=== PATIENT | female | born 1980 | race Hispanic/Latino ===

== ENCOUNTER 2019-01-05 17:08 | Emergency (ER) | payer OTHER ==
[2019-01-05] MEDS ORDERED: ONDANSETRON HCL 4 MG/2 ML VIAL ONE (17:25)
[2019-01-05 17:36] LABS: BASOPHILS % (AUTO) 0.3 % (0.0-5.0); EOSINOPHILS % (AUTO) 0.4 % (0.0-8.0); HEMATOCRIT 40.3 % (36-48); LYMPHOCYTES % (AUTO) 10.1 % (21.0-51.0); MEAN CORPUSCULAR HEMOGLOBIN 28.7 pg (27.0-33.0); MEAN CORPUSCULAR HGB CONC 32.2 g/dL (32.0-36.0); MEAN CORPUSCULAR VOLUME 89.2 fL (79-99); MONOCYTES % (AUTO) 3.7 % (3.0-13.0); NEUTROPHILS % (AUTO) 85.5 % (40.0-77.0); PLATELET COUNT (AUTO) 364 K/uL (130-400); RED BLOOD CELL COUNT(AUTO) 4.52 MIL/uL (4.00-5.50); RED CELL DISTRIBUTION WIDTH 15.2 % (11.0-15.5); WHITE BLOOD COUNT (AUTO) 10.7 K/uL (4.8-10.8)
[2019-01-05 17:45] LABS: CREATININE 0.9 mg/dL (0.5-1.5); POTASSIUM 3.6 mmol/L (3.5-5.1)
[2019-01-05 17:49] LABS: BILIRUBIN,TOTAL 0.4 mg/dL (0.2-1.0); TOTAL PROTEIN, SERUM 8.5 g/dL (6.0-8.3)
[2019-01-05] MEDS ORDERED: HYOSCYAMINE SULFATE 0.125 MG TAB.SUBL SL ONE (18:09)
[2019-01-05] MEDS ORDERED: KETOROLAC TROMETHAMINE 30MG/ML ONE (18:09)
== END 2019-01-05 20:01 | disposition home or self-care (01) ==
LOC: EDH 17:08
DX: A08.4 Viral intestinal infection, unspecified (principal); I10 Essential (primary) hypertension; Z90.49 Acquired absence of other specified parts of digestive tract
CPT/HCPCS: 36415; 80053; 82150; 83690; 85025; 87804 ×2; 96374; 96375; 99283; J1885; J2405

== ENCOUNTER 2019-09-05 16:14 | Emergency (ER) | payer MEDICAID, OTHER ==
[2019-09-05] MEDS ORDERED: ACETAMINOPHEN EXTRA STRENGTH 500 MG TABLET ONE (16:40)
[2019-09-05 18:35] LABS: APPEARANCE,URINE Cloudy (CLEAR); BILIRUBIN,URINE Negative (NEGATIVE); COLOR,URINE Yellow (YELLOW); GLUCOSE, URINE (UA) Negative (NEGATIVE); KETONES,URINE Negative (NEGATIVE); LEUKOCYTE ESTERASE ,URINE Small (NEGATIVE); NITRATE,URINE Negative (NEGATIVE); OCCULT BLOOD,URINE Negative (NEGATIVE); PH,URINE 5.5 (5.0-8.0); PROTEIN,URINE Negative (NEGATIVE)
[2019-09-05 18:53] LABS: BASOPHILS % (AUTO) 0.4 % (0.0-5.0); EOSINOPHILS % (AUTO) 2.1 % (0.0-8.0); HEMATOCRIT 34.7 % (36-48); LYMPHOCYTES % (AUTO) 19.7 % (21.0-51.0); MEAN CORPUSCULAR HGB CONC 32.3 g/dL (32.0-36.0); MEAN CORPUSCULAR VOLUME 86.7 fL (79-99); MONOCYTES % (AUTO) 5.6 % (3.0-13.0); NEUTROPHILS % (AUTO) 72.2 % (40.0-77.0); PLATELET COUNT (AUTO) 345 K/uL (130-400); RED BLOOD CELL COUNT(AUTO) 4.01 MIL/uL (4.00-5.50); RED CELL DISTRIBUTION WIDTH 15.9 % (11.0-15.5)
[2019-09-05 19:07] LABS: CREATININE 0.8 mg/dL (0.5-1.5); POTASSIUM 3.5 mmol/L (3.5-5.1)
[2019-09-05 19:12] LABS: ALBUMIN 3.5 g/dL (3.5-5.0); BILIRUBIN,TOTAL 0.2 mg/dL (0.2-1.0); TOTAL PROTEIN, SERUM 7.5 g/dL (6.0-8.3)
[2019-09-05 19:31] LABS: BACTERIA,URINE Few /HPF (None Seen); RBC,URINE 0-1 /HPF (0-1); SQUAMOUS EPITHELIAL CELL,UR Moderate /HPF (0-2)
[2019-09-05 19:32] LABS: MUCUS,URINE Moderate LPF (None Seen)
== END 2019-09-05 19:59 | disposition home or self-care (01) ==
LOC: EDH 16:14
DX: M79.10 Myalgia, unspecified site (principal); R10.811 Right upper quadrant abdominal tenderness; I10 Essential (primary) hypertension; Z72.0 Tobacco use
CPT/HCPCS: 36415; 76705; 80053; 81001; 85025; 87804

== ENCOUNTER 2020-01-19 18:17 | Emergency (ER) | payer OTHER ==
[2020-01-19] MEDS ORDERED: SODIUM CHLORIDE 0.9% 1000ML 1,000 ML IV ONE (20:15)
[2020-01-19] MEDS ORDERED: ONDANSETRON HCL 4 MG/2 ML VIAL ONE (20:16)
[2020-01-19] MEDS ORDERED: DEXAMETHASONE SOD PHOSPHATE 10MG/ML 1ML VIAL ONE (20:16)
[2020-01-19] MEDS ORDERED: KETOROLAC TROMETHAMINE 30MG/ML ONE (20:17)
== END 2020-01-19 21:11 | disposition home or self-care (01) ==
LOC: EDH 18:17
DX: G43.909 Migraine, unspecified, not intractable, without status migrainosus (principal); R11.0 Nausea; I10 Essential (primary) hypertension; Z90.49 Acquired absence of other specified parts of digestive tract; Z98.890 Other specified postprocedural states; Z72.0 Tobacco use
CPT/HCPCS: 81025; 96374; 96375; 99284; J1100; J1885; J2405; J7030

== ENCOUNTER 2021-02-18 15:19 | Emergency (ER) | payer MEDICAID, OTHER ==
[2021-02-18 16:01] LABS: BASOPHILS % (AUTO) 0.6 % (0.0-5.0); EOSINOPHILS % (AUTO) 2.8 % (0.0-8.0); HEMATOCRIT 34.4 % (36-48); LYMPHOCYTES % (AUTO) 25.8 % (21.0-51.0); MEAN CORPUSCULAR HGB CONC 31.7 g/dL (32.0-36.0); MEAN CORPUSCULAR VOLUME 91.5 fL (79-99); MONOCYTES % (AUTO) 7.3 % (3.0-13.0); NEUTROPHILS % (AUTO) 63.1 % (40.0-77.0); PLATELET COUNT (AUTO) 306 K/uL (130-400); RED BLOOD CELL COUNT(AUTO) 3.76 MIL/uL (4.00-5.50); RED CELL DISTRIBUTION WIDTH 13.6 % (11.0-15.5); WHITE BLOOD COUNT (AUTO) 8.2 K/uL (4.8-10.8)
[2021-02-18 16:09] LABS: CREATININE 0.8 mg/dL (0.5-1.5); POTASSIUM 3.6 mmol/L (3.5-5.1)
[2021-02-18] MEDS ORDERED: ALPRAZOLAM 0.25 MG TABLET ONE (16:12)
[2021-02-18 16:21] LABS: ALBUMIN 3.3 g/dL (3.5-5.0); BILIRUBIN,TOTAL 0.1 mg/dL (0.2-1.0); THYROID STIMULATING HORMONE 0.76 uIU/mL (0.36-3.74); TOTAL PROTEIN, SERUM 6.7 g/dL (6.0-8.3)
== END 2021-02-18 17:45 | disposition home or self-care (01) ==
LOC: EDH 15:19
DX: I47.1 Supraventricular tachycardia (principal); F41.1 Generalized anxiety disorder; I10 Essential (primary) hypertension; Z72.0 Tobacco use; Z98.890 Other specified postprocedural states; Z88.8 Allergy status to other drugs, medicaments and biological substances
CPT/HCPCS: 36415; 80053; 84443; 84484; 84702; 85025; 85378; 93005

== ENCOUNTER 2022-06-09 17:07 | Emergency (ER) | payer MEDICAID, OTHER ==
[~2022-06-09] VITALS: Ht 154.9 cm; Wt 81.6 kg
[~2022-06-09 17:07] MED LIST: ACET-2247 PO; IBUP-2071 PO
[2022-06-09 17:09] VITALS: BP 127/78
[2022-06-09] MEDS ORDERED: TRAMADOL /APAP 37.5MG/325MG TAB PO ONE (18:00)
[2022-06-09] MEDS ORDERED: TRAMADOL HCL 50 MG TABLET PO ONE (18:30)
[2022-06-09] MEDS ORDERED: TRAM1TAB2 PO (18:41)
[2022-06-09] MEDS ORDERED: CYCL10TA16 PO (18:41)
== END 2022-06-09 18:57 | disposition home or self-care (01) ==
LOC: EDH 17:07
DX: M43.6 Torticollis (principal); M25.512 Pain in left shoulder; I10 Essential (primary) hypertension; Z88.8 Allergy status to other drugs, medicaments and biological substances
CPT/HCPCS: 72040; 73030; 84484; 93005

== ENCOUNTER 2022-08-08 08:35 | Emergency (ER) | payer OTHER ==
[~2022-08-08] VITALS: Ht 154.9 cm; Wt 86.4 kg
[~2022-08-08 08:35] MED LIST changes: +CYCL10TA16 PO; +TRAM1TAB2 PO
[2022-08-08 08:36] VITALS: BP 115/79
[2022-08-08] MEDS ORDERED: IBUP-1493 PO (09:17)
[2022-08-08] MEDS ORDERED: CYCL-309 PO (09:17)
== END 2022-08-08 10:05 | disposition home or self-care (01) ==
LOC: EDH 08:35
DX: S40.022A Contusion of left upper arm, initial encounter (principal); M54.12 Radiculopathy, cervical region; I10 Essential (primary) hypertension; E66.9 Obesity, unspecified; Z79.1 Long term (current) use of non-steroidal anti-inflammatories (NSAID); Z88.6 Allergy status to analgesic agent; Z90.49 Acquired absence of other specified parts of digestive tract; Z68.36 Body mass index [BMI] 36.0-36.9, adult; X58.XXXA Exposure to other specified factors, initial encounter; Y93.89 Activity, other specified; Y92.89 Other specified places as the place of occurrence of the external cause; Y99.8 Other external cause status
CPT/HCPCS: 73060

== ENCOUNTER → 2022-10-11 | Emergency (ER) | payer OTHER ==
[~2022-10-11] VITALS: Ht 154.9 cm; Wt 77.6 kg
[~2022-10-11] MED LIST changes: +CYCL-309 PO; +IBUP-1493 PO
[2022-10-11 13:00] VITALS: BP 119/77
[2022-10-11 13:25] LABS: BASOPHILS % (AUTO) 0.5 % (0.0-5.0); EOSINOPHILS % (AUTO) 1.8 % (0.0-8.0); HEMATOCRIT 35.7 % (36-48); LYMPHOCYTES % (AUTO) 23.4 % (21.0-51.0); MEAN CORPUSCULAR HEMOGLOBIN 27.2 pg (27.0-33.0); MEAN CORPUSCULAR HGB CONC 30.8 g/dL (32.0-36.0); MEAN CORPUSCULAR VOLUME 88.1 fL (79-99); MONOCYTES % (AUTO) 5.1 % (3.0-13.0); NEUTROPHILS % (AUTO) 69.1 % (40.0-77.0); PLATELET COUNT (AUTO) 389 K/uL (130-400); RED BLOOD CELL COUNT(AUTO) 4.05 MIL/uL (4.00-5.50); RED CELL DISTRIBUTION WIDTH 14.1 % (11.0-15.5); WHITE BLOOD COUNT (AUTO) 7.7 K/uL (4.8-10.8)
[2022-10-11 13:38] LABS: CREATININE 0.8 mg/dL (0.5-1.5); POTASSIUM 3.8 mmol/L (3.5-5.1)
[2022-10-11 13:40] LABS: ALBUMIN 3.5 g/dL (3.5-5.0); TOTAL PROTEIN, SERUM 7.4 g/dL (6.0-8.3)
== END | disposition left against medical advice (07) ==
LOC: EDH 12:59
DX: R07.89 Other chest pain (principal); M79.602 Pain in left arm; Z53.21 Procedure and treatment not carried out due to patient leaving prior to being seen by health care provider
CPT/HCPCS: 36415; 71045; 80053; 84484; 85025; 93005

== ENCOUNTER 2022-11-16 14:32 | Emergency (ER) | payer OTHER ==
[~2022-11-16] VITALS: Ht 154.9 cm; Wt 81.6 kg
[2022-11-16 15:47] VITALS: BP 113/71
[2022-11-16 18:00] LABS: BASOPHILS % (AUTO) 0.3 % (0.0-5.0); EOSINOPHILS % (AUTO) 1.9 % (0.0-8.0); HEMATOCRIT 35.6 % (36-48); LYMPHOCYTES % (AUTO) 26.9 % (21.0-51.0); MEAN CORPUSCULAR HEMOGLOBIN 26.3 pg (27.0-33.0); MEAN CORPUSCULAR HGB CONC 30.6 g/dL (32.0-36.0); MEAN CORPUSCULAR VOLUME 85.8 fL (79-99); MONOCYTES % (AUTO) 5.5 % (3.0-13.0); PLATELET COUNT (AUTO) 409 K/uL (130-400); RED BLOOD CELL COUNT(AUTO) 4.15 MIL/uL (4.00-5.50); WHITE BLOOD COUNT (AUTO) 9.8 K/uL (4.8-10.8)
[2022-11-16 18:21] LABS: ALBUMIN 3.8 g/dL (3.5-5.0); CREATININE 0.8 mg/dL (0.5-1.5)
[2022-11-16] MEDS ORDERED: CYCL5TAB PO (18:52)
[2022-11-16] MEDS ORDERED: ACET-66 PO (18:52)
[2022-11-16] MEDS ORDERED: ACETAMINOPHEN 500 MG TABLET PO ONE (19:00)
[2022-11-16] MEDS ORDERED: CYCLOBENZAPRINE HCL 10 MG TABLET PO ONE (19:00)
== END 2022-11-16 19:25 | disposition home or self-care (01) ==
LOC: EDH 14:32
DX: R07.89 Other chest pain (principal); Z88.6 Allergy status to analgesic agent; Z88.8 Allergy status to other drugs, medicaments and biological substances
CPT/HCPCS: 36415; 71045; 80053; 83690; 84484; 85025; 93005

== ENCOUNTER 2022-11-19 23:39 | Emergency (ER) | payer OTHER ==
[~2022-11-19] VITALS: Ht 154.9 cm; Wt 84.8 kg
[~2022-11-19 23:39] MED LIST changes: +ACET-66 PO; +CYCL5TAB PO
[2022-11-20 00:23] VITALS: BP 123/73
[2022-11-20] MEDS ORDERED: NEOMY SULF/BACITRA/POLYMYXIN B 1 EACH PACKET TP ONE ×2 (01:02→01:30)
[2022-11-20] MEDS ORDERED: CEPH500B PO (01:16)
[2022-11-20] MEDS ORDERED: CEFAZOLIN SODIUM 2 GM VIAL IVP SCH (01:30)
== END 2022-11-20 01:21 | disposition home or self-care (01) ==
LOC: EDH 23:39
DX: M54.2 Cervicalgia (principal); R22.1 Localized swelling, mass and lump, neck; I10 Essential (primary) hypertension; Z90.49 Acquired absence of other specified parts of digestive tract; Z79.1 Long term (current) use of non-steroidal anti-inflammatories (NSAID); Z79.899 Other long term (current) drug therapy; Z88.8 Allergy status to other drugs, medicaments and biological substances

== ENCOUNTER 2023-02-21 21:42 | Emergency (ER) | payer OTHER ==
[~2023-02-21] VITALS: Ht 154.9 cm; Wt 85.7 kg
[~2023-02-21 21:42] MED LIST changes: +CEPH500B PO
[2023-02-21 22:36] LABS: APPEARANCE,URINE CLEAR (CLEAR); BILIRUBIN,URINE NEGATIVE (NEGATIVE); COLOR,URINE LIGHT-YELLOW (YELLOW); GLUCOSE, URINE (UA) NEGATIVE (NEGATIVE); KETONES,URINE NEGATIVE (NEGATIVE); LEUKOCYTE ESTERASE ,URINE NEGATIVE Leu/uL (NEGATIVE); NITRATE,URINE NEGATIVE (NEGATIVE); PH,URINE 6.5 (5.0-8.0); PROTEIN,URINE NEGATIVE (NEGATIVE); UROBILINOGEN,URINE 0.2 mg/dL (0.2-1.0)
[2023-02-21 22:37] LABS: HCG,QUALITATIVE URINE NEGATIVE (NEGATIVE)
[2023-02-21 23:02] LABS: BACTERIA,URINE RARE /HPF (None Seen); MUCUS,URINE FEW LPF (None Seen); SQUAMOUS EPITHELIAL CELL,UR FEW /HPF (0-2); WBC,URINE 0-1 /HPF (0-1)
[2023-02-22 00:27] VITALS: BP 116/79
== END 2023-02-22 00:48 | disposition home or self-care (01) ==
LOC: EDH 21:42
DX: R10.9 Unspecified abdominal pain (principal); R11.0 Nausea; I10 Essential (primary) hypertension; E66.9 Obesity, unspecified; Z88.6 Allergy status to analgesic agent; Z88.8 Allergy status to other drugs, medicaments and biological substances; Z90.49 Acquired absence of other specified parts of digestive tract; Z90.710 Acquired absence of both cervix and uterus; Z98.890 Other specified postprocedural states; Z79.899 Other long term (current) drug therapy
CPT/HCPCS: 81001; 81025

== ENCOUNTER 2023-02-27 21:06 | Emergency (ER) | payer OTHER ==
[~2023-02-27] VITALS: Ht 157.5 cm; Wt 84.9 kg
[2023-02-27 23:12] LABS: BASOPHILS % (AUTO) 0.3 % (0.0-5.0); EOSINOPHILS % (AUTO) 1.7 % (0.0-8.0); HEMATOCRIT 32.2 % (36-48); LYMPHOCYTES % (AUTO) 13.6 % (21.0-51.0); MEAN CORPUSCULAR HEMOGLOBIN 25.5 pg (27.0-33.0); MEAN CORPUSCULAR HGB CONC 29.8 g/dL (32.0-36.0); MEAN CORPUSCULAR VOLUME 85.6 fL (79-99); NEUTROPHILS % (AUTO) 77.1 % (40.0-77.0); PLATELET COUNT (AUTO) 398 K/uL (130-400); RED BLOOD CELL COUNT(AUTO) 3.76 MIL/uL (4.00-5.50); RED CELL DISTRIBUTION WIDTH 16.4 % (11.0-15.5); WHITE BLOOD COUNT (AUTO) 12.3 K/uL (4.8-10.8)
[2023-02-27 23:22] LABS: POTASSIUM 4.1 mmol/L (3.5-5.1)
[2023-02-27 23:29] LABS: ALBUMIN 3.4 g/dL (3.5-5.0); TOTAL PROTEIN, SERUM 7.4 g/dL (6.0-8.3)
[2023-02-27] MEDS ORDERED: ONDANSETRON 4MG INJ IVP ONE (23:30)
[2023-02-27] MEDS ORDERED: MORPHINE 4 MG SYG IVP ONE (23:30)
[2023-02-27] MEDS ORDERED: LACTATED RINGERS 1000ML 1,000 ML IV ONE (23:30)
[2023-02-28] MEDS ORDERED: MORPHINE 2 MG SYG IVP ONE (02:30)
[2023-02-28 03:55] LABS: APPEARANCE,URINE CLEAR (CLEAR); BILIRUBIN,URINE 0.5 mg/dL (NEGATIVE); COLOR,URINE DARK-YELLOW (YELLOW); GLUCOSE, URINE (UA) NEGATIVE (NEGATIVE); KETONES,URINE NEGATIVE (NEGATIVE); LEUKOCYTE ESTERASE ,URINE NEGATIVE Leu/uL (NEGATIVE); NITRATE,URINE 1+ (NEGATIVE); OCCULT BLOOD,URINE NEGATIVE (NEGATIVE); PROTEIN,URINE 20 mg/dL (NEGATIVE); UROBILINOGEN,URINE 3 mg/dL (0.2-1.0)
[2023-02-28 04:03] LABS: BACTERIA,URINE RARE /HPF (None Seen); MUCUS,URINE RARE LPF (None Seen); SQUAMOUS EPITHELIAL CELL,UR MOD /HPF (0-2)
[2023-02-28] MEDS ORDERED: IBUP-2071 PO (04:53)
[2023-02-28 04:57] VITALS: BP 111/74
== END 2023-02-28 05:02 | disposition home or self-care (01) ==
LOC: EDH 21:06
DX: R31.9 Hematuria, unspecified (principal); M54.9 Dorsalgia, unspecified; I10 Essential (primary) hypertension; E66.9 Obesity, unspecified; Z90.49 Acquired absence of other specified parts of digestive tract; Z98.890 Other specified postprocedural states; Z83.3 Family history of diabetes mellitus; Z88.6 Allergy status to analgesic agent; Z88.8 Allergy status to other drugs, medicaments and biological substances
CPT/HCPCS: 99285; 96374; 96361; 96375; 80053; 83690; 85025; 87088; 81001; 81025; 36415 ×2; 74176; 96376; J7120; J2405; J2270

== ENCOUNTER 2023-03-02 00:08 | Emergency (ER) | payer OTHER ==
[~2023-03-02] VITALS: Ht 154.9 cm; Wt 85.7 kg
[2023-03-02 00:09] VITALS: BP 110/78
[2023-03-02] MEDS ORDERED: GABA300C PO (01:19)
[2023-03-02] MEDS ORDERED: CYCL-309 PO (01:19)
[2023-03-02] MEDS ORDERED: GABAPENTIN 100 MG CAPSULE PO SCH (01:30)
== END 2023-03-02 01:53 | disposition home or self-care (01) ==
LOC: EDH 00:08
DX: M54.50 Low back pain, unspecified (principal); M79.604 Pain in right leg; M79.605 Pain in left leg; I10 Essential (primary) hypertension; E66.9 Obesity, unspecified; Z90.49 Acquired absence of other specified parts of digestive tract; Z79.899 Other long term (current) drug therapy; Z98.890 Other specified postprocedural states; Z83.3 Family history of diabetes mellitus; Z88.6 Allergy status to analgesic agent; Z88.8 Allergy status to other drugs, medicaments and biological substances

== ENCOUNTER 2023-04-18 13:18 | Emergency (ER) | payer OTHER ==
[~2023-04-18] VITALS: Ht 154.9 cm; Wt 83.9 kg
[~2023-04-18 13:18] MED LIST changes: +GABA300C PO
[2023-04-18 14:35] LABS: BASOPHILS % (AUTO) 0.6 % (0.0-5.0); EOSINOPHILS % (AUTO) 2.9 % (0.0-8.0); HEMATOCRIT 33.3 % (36-48); LYMPHOCYTES % (AUTO) 26.1 % (21.0-51.0); MEAN CORPUSCULAR HEMOGLOBIN 25.4 pg (27.0-33.0); MEAN CORPUSCULAR HGB CONC 30.3 g/dL (32.0-36.0); MEAN CORPUSCULAR VOLUME 83.7 fL (79-99); MONOCYTES % (AUTO) 6.9 % (3.0-13.0); NEUTROPHILS % (AUTO) 63.1 % (40.0-77.0); PLATELET COUNT (AUTO) 438 K/uL (130-400); RED BLOOD CELL COUNT(AUTO) 3.98 MIL/uL (4.00-5.50); RED CELL DISTRIBUTION WIDTH 17.1 % (11.0-15.5); WHITE BLOOD COUNT (AUTO) 9.3 K/uL (4.8-10.8)
[2023-04-18 14:39] LABS: APPEARANCE,URINE CLEAR (CLEAR); BILIRUBIN,URINE NEGATIVE (NEGATIVE); COLOR,URINE LIGHT-YELLOW (YELLOW); GLUCOSE, URINE (UA) NEGATIVE (NEGATIVE); KETONES,URINE NEGATIVE (NEGATIVE); LEUKOCYTE ESTERASE ,URINE NEGATIVE Leu/uL (NEGATIVE); NITRATE,URINE NEGATIVE (NEGATIVE); OCCULT BLOOD,URINE SMALL (NEGATIVE); PROTEIN,URINE NEGATIVE (NEGATIVE); UROBILINOGEN,URINE 0.2 mg/dL (0.2-1.0)
[2023-04-18 14:48] LABS: CREATININE 0.6 mg/dL (0.5-1.5)
[2023-04-18 14:52] LABS: ALBUMIN 3.7 g/dL (3.5-5.0); TOTAL PROTEIN, SERUM 7.4 g/dL (6.0-8.3)
[2023-04-18 15:00] LABS: BACTERIA,URINE RARE /HPF (None Seen); MUCUS,URINE RARE LPF (None Seen); SQUAMOUS EPITHELIAL CELL,UR FEW /HPF (0-2)
[2023-04-18 15:05] LABS: HCG,QUALITATIVE URINE NEGATIVE (NEGATIVE)
[2023-04-18 18:04] VITALS: BP 109/45
== END 2023-04-18 18:10 | disposition home or self-care (01) ==
LOC: EDH 13:18
DX: N93.8 Other specified abnormal uterine and vaginal bleeding (principal); R10.2 Pelvic and perineal pain; I10 Essential (primary) hypertension; Z88.6 Allergy status to analgesic agent; Z88.8 Allergy status to other drugs, medicaments and biological substances; Z79.899 Other long term (current) drug therapy; Z90.49 Acquired absence of other specified parts of digestive tract
CPT/HCPCS: 36415; 76856; 80053; 81001; 81025; 85025

== ENCOUNTER 2023-05-19 17:25 | Emergency (ER) | payer OTHER ==
[2023-05-19 18:02] LABS: BASOPHILS % (AUTO) 0.7 % (0.0-5.0); EOSINOPHILS % (AUTO) 3.2 % (0.0-8.0); HEMATOCRIT 32.4 % (36-48); MEAN CORPUSCULAR HEMOGLOBIN 25.4 pg (27.0-33.0); MEAN CORPUSCULAR HGB CONC 29.6 g/dL (32.0-36.0); MEAN CORPUSCULAR VOLUME 85.7 fL (79-99); MONOCYTES % (AUTO) 7.1 % (3.0-13.0); NEUTROPHILS % (AUTO) 62.8 % (40.0-77.0); PLATELET COUNT (AUTO) 411 K/uL (130-400); RED BLOOD CELL COUNT(AUTO) 3.78 MIL/uL (4.00-5.50); RED CELL DISTRIBUTION WIDTH 17.4 % (11.0-15.5)
[2023-05-19 18:11] VITALS: BP 121/76
[2023-05-19 18:15] LABS: ALBUMIN 3.5 g/dL (3.5-5.0); CREATININE 0.7 mg/dL (0.5-1.5); POTASSIUM 3.8 mmol/L (3.5-5.1); TOTAL PROTEIN, SERUM 7.1 g/dL (6.0-8.3)
[2023-05-19 18:23] LABS: APPEARANCE,URINE CLOUDY (CLEAR); BILIRUBIN,URINE NEGATIVE (NEGATIVE); COLOR,URINE LIGHT-YELLOW (YELLOW); GLUCOSE, URINE (UA) NEGATIVE (NEGATIVE); KETONES,URINE NEGATIVE (NEGATIVE); LEUKOCYTE ESTERASE ,URINE 250 Leu/uL (NEGATIVE); NITRATE,URINE NEGATIVE (NEGATIVE); OCCULT BLOOD,URINE LARGE (NEGATIVE); PH,URINE 6.5 (5.0-8.0); PROTEIN,URINE NEGATIVE (NEGATIVE); UROBILINOGEN,URINE 0.2 mg/dL (0.2-1.0)
[2023-05-19 18:26] LABS: BACTERIA,URINE FEW /HPF (None Seen); MUCUS,URINE RARE LPF (None Seen); SQUAMOUS EPITHELIAL CELL,UR MOD /HPF (0-2); YEAST,URINE BUDDING FEW /HPF (None Seen)
[2023-05-19] MEDS ORDERED: IBUPROFEN 600 MG TABLET PO ONE (18:30)
[2023-05-19] MEDS ORDERED: CEFTRIAXONE 1G VIAL IM ONE (18:30)
[2023-05-19] MEDS ORDERED: DIAZEPAM 5 MG TABLET PO ONE (18:30)
[2023-05-19] MEDS ORDERED: HYDROCODONE/ACETAMINOPHEN 5/325 MG TAB PO ONE (18:30)
[2023-05-19] MEDS ORDERED: ONDANSETRON ODT 4MG TAB SL ONE (18:30)
[2023-05-19] MEDS ORDERED: PREDNISONE 20 MG TABLET PO ONE (18:30)
[2023-05-19] MEDS ORDERED: IBUP-2070 PO (20:14)
[2023-05-19] MEDS ORDERED: FIORIT PO (20:14)
[2023-05-19] MEDS ORDERED: CEFD300C3 PO (20:14)
== END 2023-05-19 20:21 | disposition home or self-care (01) ==
LOC: EDH 17:25
DX: N39.0 Urinary tract infection, site not specified (principal); G44.209 Tension-type headache, unspecified, not intractable; E66.9 Obesity, unspecified; Z90.49 Acquired absence of other specified parts of digestive tract; Z98.890 Other specified postprocedural states; Z79.899 Other long term (current) drug therapy
CPT/HCPCS: 99284; 80053; 85025; 86850; 86900; 86901; 87088; 81001; 36415; 96372; J0696

== ENCOUNTER 2023-07-20 03:27 | Emergency (ER) | payer OTHER ==
[~2023-07-20] VITALS: Ht 154.9 cm; Wt 85.7 kg
[~2023-07-20 03:27] MED LIST changes: +CEFD300C3 PO; +FIORIT PO; +IBUP-2070 PO
[2023-07-20 05:45] VITALS: BP 119/78; PULSE 84; RESP 18; O2SAT 100
[2023-07-20 06:21] LABS: APPEARANCE,URINE CLEAR (CLEAR); BILIRUBIN,URINE NEGATIVE (NEGATIVE); COLOR,URINE DARK-YELLOW (YELLOW); GLUCOSE, URINE (UA) NEGATIVE (NEGATIVE); KETONES,URINE NEGATIVE (NEGATIVE); LEUKOCYTE ESTERASE ,URINE NEGATIVE Leu/uL (NEGATIVE); NITRATE,URINE 1+ (NEGATIVE); OCCULT BLOOD,URINE NEGATIVE (NEGATIVE); PH,URINE 5.5 (5.0-8.0); PROTEIN,URINE NEGATIVE (NEGATIVE); UROBILINOGEN,URINE 0.2 mg/dL (0.2-1.0)
[2023-07-20 06:25] LABS: ADD UA MICROSCOPIC YES
[2023-07-20 06:28] LABS: MUCUS,URINE RARE LPF (None Seen); RBC,URINE 0-1 /HPF (0-1); SQUAMOUS EPITHELIAL CELL,UR FEW /HPF (0-2)
== END 2023-07-20 06:36 | disposition left against medical advice (07) ==
LOC: EDH 03:27
DX: M54.9 Dorsalgia, unspecified (principal); Z53.21 Procedure and treatment not carried out due to patient leaving prior to being seen by health care provider
CPT/HCPCS: 81001; 81025; 87088; 99281

== ENCOUNTER 2023-08-16 20:47 | Emergency (ER) | payer OTHER | END 2023-08-16 23:05 | disposition left against medical advice (07) | LOC: EDH 20:47 | DX: M54.2 Cervicalgia (principal); Z53.21 Procedure and treatment not carried out due to patient leaving prior to being seen by health care provider ==

== ENCOUNTER 2024-03-31 21:37 | Emergency (ER) | payer OTHER ==
[~2024-03-31] VITALS: Ht 154.9 cm; Wt 85.8 kg
[2024-03-31] MEDS: CYCLOBENZAPRINE HCL 10 MG TABLET PO ONE (21:57)
[2024-03-31] MEDS: ACETAMINOPHEN 500 MG TABLET PO ONE (21:57)
[2024-03-31] MEDS ORDERED: IBUP-2077 PO (23:10)
[2024-03-31] MEDS ORDERED: CYCL-309 PO (23:10)
[2024-03-31 23:34] VITALS: BP 120/69; PULSE 77; RESP 18; O2SAT 99
== END 2024-03-31 23:35 | disposition home or self-care (01) ==
LOC: EDH 21:37
DX: S16.1XXA Strain of muscle, fascia and tendon at neck level, initial encounter (principal); S00.03XA Contusion of scalp, initial encounter; Z79.899 Other long term (current) drug therapy; Z98.890 Other specified postprocedural states; Z90.49 Acquired absence of other specified parts of digestive tract; Z88.8 Allergy status to other drugs, medicaments and biological substances; W07.XXXA Fall from chair, initial encounter; Y93.89 Activity, other specified; Y92.89 Other specified places as the place of occurrence of the external cause; Y99.8 Other external cause status
CPT/HCPCS: 72125

== ENCOUNTER 2024-05-26 14:51 | Emergency (ER) | payer OTHER ==
[~2024-05-26] VITALS: Ht 154.9 cm; Wt 85.3 kg
[~2024-05-26 14:51] MED LIST changes: +IBUP-2077 PO
[2024-05-26] MEDS: KETOROLAC 60 MG VIAL (30MG/ML) IM ONE (16:25)
[2024-05-26] MEDS ORDERED: FIORIT PO (17:49)
[2024-05-26 18:20] VITALS: BP 112/71; PULSE 72; RESP 18; O2SAT 100
== END 2024-05-26 18:20 | disposition home or self-care (01) ==
LOC: EDH 14:51
DX: R51.9 Headache, unspecified (principal); R42 Dizziness and giddiness; R20.2 Paresthesia of skin; I10 Essential (primary) hypertension; E78.00 Pure hypercholesterolemia, unspecified; E66.9 Obesity, unspecified; Z88.8 Allergy status to other drugs, medicaments and biological substances; Z79.899 Other long term (current) drug therapy; Z79.2 Long term (current) use of antibiotics; Z68.30 Body mass index [BMI] 30.0-30.9, adult; Z90.49 Acquired absence of other specified parts of digestive tract; Z98.890 Other specified postprocedural states
CPT/HCPCS: 99285; 70450; 81025; 96372; J1885

== ENCOUNTER 2024-09-21 23:47 | Emergency (ER) | payer OTHER ==
[~2024-09-21] VITALS: Ht 154.9 cm; Wt 85.3 kg
[~2024-09-21 23:47] MED LIST changes: -CYCL5TAB PO; +CYCL5TAB3 PO
[2024-09-22 01:24] LABS: BASOPHILS # (AUTO) 0.04 K/uL (0.00-0.20); BASOPHILS % (AUTO) 0.4 % (0.0-5.0); EOSINOPHILS # (AUTO) 0.07 K/uL (0.00-0.70); EOSINOPHILS % (AUTO) 0.7 % (0.0-8.0); HEMATOCRIT 32.8 % (36-48); IMMATURE GRANULOCYTE ABSOLUTE 0.04 K/uL (0-1); LYMPHOCYTES # (AUTO) 1.4 K/uL (1.0-4.8); LYMPHOCYTES % (AUTO) 13.2 % (21.0-51.0); MEAN CORPUSCULAR HEMOGLOBIN 24.7 pg (27.0-33.0); MEAN CORPUSCULAR HGB CONC 29.9 g/dL (32.0-36.0); MEAN CORPUSCULAR VOLUME 82.6 fL (79-99); MONOCYTES # (AUTO) 0.6 K/uL (0.1-1.0); MONOCYTES % (AUTO) 5.7 % (3.0-13.0); NEUTROPHILS # (AUTO) 8.3 K/uL (1.8-7.7); NEUTROPHILS % (AUTO) 79.6 % (40.0-77.0); PLATELET COUNT (AUTO) 413 K/uL (130-400); RED BLOOD CELL COUNT(AUTO) 3.97 MIL/uL (4.00-5.50); RED CELL DISTRIBUTION WIDTH 17.6 % (11.0-15.5); WHITE BLOOD COUNT (AUTO) 10.4 K/uL (4.8-10.8)
[2024-09-22 01:31] LABS: CREATININE 0.8 mg/dL (0.5-1.0); POTASSIUM 3.9 mmol/L (3.5-5.1)
[2024-09-22] MEDS: 0.9%NACL 1000ML 1,000 ML IV ONE (02:11)
[2024-09-22] MEDS: acetaMINOPHEN 500 MG TABLET PO ONE (02:11)
[2024-09-22] MEDS: metoCLOPRAmide 10 MG/2 ML VIAL IVP ONE (02:12)
[2024-09-22] MEDS: DiphenhydrAMINE HCL 50 MG/ML VIAL IV ONE (02:12)
--- NOTE | 2024-09-22 02:14 | ERN ---
ED Note History of Present Illness Stated Complaint: C/O HEADACHE WITH N X V ONSET TODAY Chief Complaint: Headache Time Seen by MD: 00:15 Time Seen by Midlevel: 00:15 Dictation: Patient is a 44-year-old female with a history of hypertension not on any treatment, hyperlipidemia who presents to the emergency department with complaints of frontal headache radiating to the back onset 8:00 a.m. associated with dizziness, nausea, nonbloody vomiting. Patient denies any head trauma, fevers, vision disturbances, use of blood thinners. Allergies: Coded Allergies: aluminum hydroxide (Unverified Allergy, Unknown, 02/18/21) capsaicin (Unverified Allergy, Unknown, 02/18/21) magnesium hydroxide (Unverified Allergy, Unknown, 02/18/21) menthol (Unverified Allergy, Unknown, 02/18/21) methyl salicylate (Unverified Allergy, Unknown, 02/18/21) naproxen (Unverified Allergy, Unknown, 02/18/21) simethicone (Unverified Allergy, Unknown, 02/18/21) Home Meds Active Scripts Butalb/Acetaminophen/Caffeine (Fioricet) 50 Mg-325 Mg-40 Mg Tab, 1 TAB PO BID for for headache for 5 Days, #10 TAB Prov:EMILY JUNG MD 05/26/24 Ibuprofen (Ibuprofen 800 mg Tab) 800 Mg Tab, 800 MG PO Q6H PRN for PAIN, #30 TAB Prov:RAJANI REMY INTEGRATION TECHNICIAN 03/31/24 Cyclobenzaprine HCl (Cyclobenzaprine HCl) 10 Mg Tablet, 10 MG PO TID for 10 Days, #30 TAB Prov:RAJANI REMY INTEGRATION TECHNICIAN 03/31/24 Ibuprofen (Ibuprofen) 600 Mg Tablet, 600 MG PO Q6H PRN for PAIN, #30 TAB Prov:YANIRA LEIVADEIDRA MACHINE BRUSHER 05/19/23 Butalb/Acetaminophen/Caffeine (Fioricet) 1 Tab Tab, 1 TAB PO Q6HPRN PRN for HEADACHE, #30 TAB Prov:YANIRA LEIVADEIDRA MACHINE BRUSHER 05/19/23 Cefdinir (Cefdinir) 300 Mg Capsule, 300 MG PO BID for 10 Days, #20 CAP Prov:YANIRA LEIVADEIDRA MACHINE BRUSHER 05/19/23 Gabapentin (Neurontin) 300 Mg Capsule, 300 MG PO TID, #60 CAP Prov:ANA POTTER MD 03/02/23 Cyclobenzaprine HCl (Cyclobenzaprine HCl) 10 Mg Tablet, 10 MG PO TIDP PRN for PAIN, #30 TAB Prov:ANA POTTER MD 03/02/23 Ibuprofen (Ibuprofen) 800 Mg Tablet, 800 MG PO Q8H PRN for PAIN, #30 TAB 0 Refills Prov:ANA POTTER MD 02/28/23 Cephalexin Monohydrate (Keflex) 500 Mg Cap, 500 MG PO QID for 7 Days, #28 CAP Prov:DESIREE FARLEY MD 11/20/22 Cyclobenzaprine HCl (Cyclobenzaprine HCl) 5 Mg Tablet, 5 MG PO TID PRN for MUSCLE SPASMS, #15 TAB Prov:LEBRON FAUSTP 11/16/22 Acetaminophen (Tylenol) 500 Mg Tab, 500 MG PO Q4PRN PRN for PAIN, #30 TAB Prov:LEBRON FAUSTP 11/16/22 Ibuprofen (Motrin/Advil) 800 Mg Tab, 800 MG PO TIDP PRN for PAIN, #30 TAB Prov:ANA POTTER MD 08/08/22 Cyclobenzaprine HCl (Cyclobenzaprine HCl) 10 Mg Tablet, 10 MG PO TIDP PRN for PAIN, #30 TAB Prov:ANA POTTER MD 08/08/22 Cyclobenzaprine HCl (Flexeril) 10 Mg Tab, 0.5 MG PO TID PRN for PAIN LEVEL 4 TO 6, #15 TAB Prov:MADYSON FITZGERALD Jr. [facility] 06/09/22 Tramadol HCl/Acetaminophen (Ultracet Tablet) 1 Each Tablet, 1 EACH PO Q6HPRN PRN for PAIN LEVEL 4 TO 6, #20 TAB Prov:MADYSON FITZGERALD Jr. MACHINE BRUSHER 06/09/22 Acetaminophen (Tylenol) 325 Mg Tablet, 650 MG PO Q4HPRN, #50 TAB Prov:CELENA MUNIZ 05/04/22 Ibuprofen (Ibuprofen) 800 Mg Tablet, 800 MG PO TID PRN for PAIN, #60 TAB Prov:CELENA MUNIZ 05/04/22 Past Medical History Past Medical History: High Cholesterol, Hypertension Additional Past Medical Hx: obesity Surgical History: Unknown Family History: DM Social History: Negative, Lives with family History: Not Applicable LMP: Sep 18, 2024 : 5 Para: 5 Aborts: 0 RN Note Reviewed/Agreed w/PFSH: Yes Review of System Dictation Constitutional: Negative for fever,chills, and weight loss Eyes: Negative for injury, pain,redness, and discharge ENT: Negative for injury,pain or swelling Cardiovascular: Negative for chest pain, palpitations, and edema Respiratory: Negative for shortness of breath, cough, and wheezing, Abdomen/GI: Negative for abdominal pain, diarrhea, and constipation. Positive for nausea and vomiting Back: Negative for injury and pain : Negative for injury, bleeding and discharge MS/Extremity: Negative for injury and deformity Skin: Negative for rash, and discoloration Neuro: Negative for weakness, numbness, tingling, and seizure . Positive for headache Psych: Negative for suicide ideation, homicidal ideation, and hallucinations Initial Vital Sign VS Vital Signs Date Time Temp Pulse Resp B/P (MAP) Pulse Ox O2 Delivery O2 Flow Rate FiO2 09/21/24 23:50 98.1 75 20 117/82 99 Room Air Physical Exam Dictation Vital Signs reviewed General Appearance: Alert, oriented x 3, no acute distress, well developed, nourished. Head and Face: non-traumatic. Eyes: PERRL, pink conjunctivas, eyelid no trauma, anterior chamber with arcus senilis. Ears: Pinnas intact and no signs of trauma or erythema ear canals clear and no discharge TM no erythema Nose: No discharge, no bleeding. Oropharynx: Mouth normal, tongue pink. pharynx clear,no erythema, tonsils no exudates, no abscesses noted, mucous membrane moist Neck: Supple, non-tender, no thyromegaly, no masses, no JVD, no bruits Breast:Deferred Chest:No tenderness, no crepitus, no paradoxical movement, no retractions Lungs:Clear, well-ventilated, symmetric, no rales, no wheezing, no rhonchi, no stridor, good breath sounds bilaterally Heart: Regular rate, regular rhythm, no murmur, no gallops Vascular: no peripheral edema, Abdomen: Soft, positive bowel sounds, nondistended, no guarding, nontender, no rebound, no masses no hepatomegaly, no splenomegaly, no Mendez's sign, no hernias. Rectal: Deferred Genital: Deferred Neurological: Normal speech, motor function intact, sensory function intact , no slurred speech, no facial droop, upper extremities equal and strength, lower extremities equal and strength of NIH 0 Musculoskeletal: Neck nontender, full range of motion, back nontender, full range of motion, Extremities: nontender, full range of motion Skin: Color pink, dry, no turgor, no rash, no lacerations, no abrasions, no contusions. Lymphatic: Deferred Results (Laboratory/Radiology) Laboratory/Radiology Laboratory Tests Test 09/22/24 01:17 White Blood Count 10.4 K/uL (4.8-10.8) Red Blood Count 3.97 MIL/uL (4.00-5.50) L Hemoglobin 9.8 g/dL (12.0-16.0) L Hematocrit 32.8 % (36-48) L Mean Corpuscular Volume 82.6 fL (79-99) Mean Corpuscular Hemoglobin 24.7 pg (27.0-33.0) L Mean Corpuscular Hemoglobin Concent 29.9 g/dL (32.0-36.0) L Red Cell Distribution Width 17.6 % (11.0-15.5) H Platelet Count 413 K/uL (130-400) H Mean Platelet Volume 9.1 fL (7.5-10.5) Immature Granulocyte % (Auto) 0.4 % (0-1) Neutrophils (%) (Auto) 79.6 % (40.0-77.0) H Lymphocytes (%) (Auto) 13.2 % (21.0-51.0) L Monocytes (%) (Auto) 5.7 % (3.0-13.0) Eosinophils (%) (Auto) 0.7 % (0.0-8.0) Basophils (%) (Auto) 0.4 % (0.0-5.0) Neutrophils # (Auto) 8.3 K/uL (1.8-7.7) H Lymphocytes # (Auto) 1.4 K/uL (1.0-4.8) Monocytes # (Auto) 0.6 K/uL (0.1-1.0) Eosinophils # (Auto) 0.07 K/uL (0.00-0.70) Basophils # (Auto) 0.04 K/uL (0.00-0.20) Absolute Immature Granulocyte (auto 0.04 K/uL (0-1) Nucleated Red Blood Cells 0.0 % (0.0-0.19) Red Blood Cell Morphology See comments Sodium Level 139 mmol/L (136-145) Potassium Level 3.9 mmol/L (3.5-5.1) Chloride Level 103 mmol/L (101-111) Carbon Dioxide Level 28 mmol/L (21-32) Blood Urea Nitrogen 10 mg/dL (7-18) Creatinine 0.8 mg/dL (0.5-1.0) Glomerular Filtration Rate Calc 92 mL/min (>90) Random Glucose 117 mg/dL (70-105) H Total Calcium 8.5 mg/dL (8.5-10.1) Serum Test, Qualitative NEGATIVE (NEGATIVE) Labs Reviewed?: Yes ED Course ED Course Orders Procedure Category Date Status Time Cbc With Differential LAB 09/22/24 Complete 00: 0.9%Nacl 1000ml (Ns PHA 09/22/24 Complete 1000ml) 00:30 Basic Metabolic Panel LAB 09/22/24 Complete 00:24 Testing, LAB 09/22/24 Complete Serum Hcg 00:24 Drug Screen Urine LAB 09/22/24 Logged 00:24 Urinalysis Profile LAB 09/22/24 Logged 00:24 Ct Head/Brain W/O CT 09/22/24 Taken Contrast 00:24 Metoclopramide 10 PHA 09/22/24 Complete Mg/2 Ml Vial (Reglan 1 00:30 Diphenhydramine Hcl PHA 09/22/24 Complete (Benadryl Inj) 00:30 Acetaminophen 500mg PHA 09/22/24 Complete Tab (Tylenol 500mg T 00:30 Current Medications Medications (Trade) Dose Ordered Sig/Sharri Route PRN Reason Start Time Stop Time Status Last Admin Dose Admin Acetaminophen (TYLenol 500MG TAB) 1,000 mg ONCE ONCE PO 09/22/24 00:30 09/22/24 00:31 DC 09/22/24 02:11 Diphenhydramine HCl (BENAdryl INJ) 25 mg ONCE ONCE IV 09/22/24 00:30 09/22/24 00:31 DC 09/22/24 02:12 Metoclopramide HCl (regLAN 10MG IV) 10 mg ONCE ONCE IVP 09/22/24 00:30 09/22/24 00:31 DC 09/22/24 02:12 Sodium Chloride 1,000 ml @ 0 mls/hr ONCE ONCE IV 09/22/24 00:30 09/22/24 00:31 DC 09/22/24 02:11 Vital Signs Date Time Temp Pulse Resp B/P (MAP) Pulse Ox O2 Delivery O2 Flow Rate FiO2 09/21/24 23:50 98.1 75 20 117/82 99 Room Air Medical Decision Making MDM Patient is a 44-year-old female with a history of hypertension not on any treatment, hyperlipidemia who presents to the emergency department with complaints of frontal headache radiating to the back onset 8:00 a.m. associated with dizziness, nausea, nonbloody vomiting. Patient denies any head trauma, fevers, vision disturbances, use of blood thinners. CBC showed no leukocytosis, normocytic anemia, chemistry showed normal renal function, mild hyperglycemia, CT head Differential diagnosis: Tension headache, dehydration, migraine headache, subarachnoid hemorrhage Need for hospitalization: Patient does not meet criteria for hospitalization. There are no social concerns with this patient. Problem List Problem List: (1) Cervical myofascial strain (2) Tension headache DX & DISP Disposition: Discharge Departure Impression: Primary Impression: Headache Additional Impression: Cervical myofascial strain Condition: Stable Additional Instructions: Patient and the caregiver have been informed of all the diagnostic tests and the imaging conducted during the today's visit to the emergency room and has verbalized understanding of the results I have personally reviewed and i nterpreted all diagnostic exams performed here in the ER today as well as the vital signs documented by the nursing staff. The patient is now being discharged to home and should follow up with the primary care physician or the specialist as directed by the ER staff. Follow-up with primary care provider in 1 to 2 days. Take medications as directed here in the emergency room. Okay to continue home medications unless otherwise discussed during your visit in the emergency room today. Return to your nearest emergency room if symptoms worsen or if there is no improvement. Call 911 if you need immediate assistance. Take Tylenol or Motrin [id number] as needed and if no contraindications are present. Increase oral hydration. A wound culture or urine culture was ordered here in the emergency room department please follow-up with primary care provider and advise them to get repeat ports from our facility. If you had any Rob wrap/splints that were applied here, please do not remove them until you see your primary care or specialty. Referrals: ANA HUTSON DO (PCP) JORGE AGUIRRE Sep 22, 2024 02:14 THMARK RAGSDALE MD Sep 22, 2024 03:54
[2024-09-22 04:44] VITALS: BP 114/78; PULSE 72; RESP 16; TEMP 98; O2SAT 99
--- NOTE | 2024-09-22 08:23 | HMCIMG ---
CT HEAD/BRAIN W/O CONTRAST HISTORY: Headaches nausea and vomiting COMPARISON: None TECHNIQUE: Multiple sequential axial images of the head were obtained from the base of the skull through vertex. Patient was not given contrast through intravenous route. FINDINGS: The ventricles and extraventricular CSF spaces are nondilated for patient's age. There is no midline shift, mass effect or herniation. No acute intracranial bleed is seen. Visualized portion of the paranasal sinuses are grossly within normal limits. IMPRESSION: 1. No acute intracranial bleed is seen. CT was performed with one or more following dose reduction techniques: automated exposure control, adjustment of the mA and kv according to patient's size, or use of a iterative reconstruction technique.
== END 2024-09-22 04:45 | disposition home or self-care (01) ==
LOC: EDH 23:47
DX: S16.1XXA Strain of muscle, fascia and tendon at neck level, initial encounter (principal); R51.9 Headache, unspecified; E66.9 Obesity, unspecified; E78.00 Pure hypercholesterolemia, unspecified; I10 Essential (primary) hypertension; Z79.899 Other long term (current) drug therapy; Z88.6 Allergy status to analgesic agent; X58.XXXA Exposure to other specified factors, initial encounter; Y93.89 Activity, other specified; Y92.89 Other specified places as the place of occurrence of the external cause; Y99.8 Other external cause status
CPT/HCPCS: 99285; 80048; 84703; 85025; 36415; 96374; 70450; 96361; 96375; J1200; J7030; J2765